=== PATIENT | female | born 1990 | race Caucasian/White ===

== ENCOUNTER 2018-04-14 21:06 | Emergency (ER) | payer MEDICAID ==
[~2018-04-14] VITALS: Ht 152.4 cm; Wt 89.3 kg
[2018-04-14 21:08] VITALS: Ht 152.4 cm; Wt 89.3 kg
[2018-04-14 22:59] LABS: PLATELET COUNT 216 x10^3mcL (130-400); RED CELL DISTRIBUTION WIDTH 13.7 % (11.5-14.5)
[2018-04-14 23:22] LABS: CALCIUM 8.7 mg/dL (8.5-10.1); CARBON DIOXIDE 27.3 mmol/L (21-32); CHLORIDE SERUM 106 mmol/L (98-107); CREATININE SERUM 0.7 mg/dL (0.6-1.0); GFR1 > 60 mL/min; GLUCOSE SERUM 100 mg/dL (74-106); POTASSIUM SERUM 3.9 mmol/L (3.5-5.1); SODIUM SERUM 140 mmol/L (136-145)
[2018-04-14 23:25] LABS: microscopic required? YES; urine erythrocyte TRACE (NEGATIVE)
[2018-04-14 23:29] LABS: ALBUMIN 3.7 g/dL (3.4-5.0); ALKALINE PHOSPHATASE 82 U/L (46-116); ALT/SGPT 26 U/L (14-59); AST/SGOT 18 U/L (15-37); BILIRUBIN TOTAL 0.3 mg/dL (0.20-1.00); LIPASE 228 IU/L (73-393)
[2018-04-15 01:31] VITALS: BP 146/97
== END 2018-04-15 01:31 | disposition home or self-care (01) ==
LOC: ED 21:06
PROVIDERS: Emergency Medicine
DX: B37.3 Candidiasis of vulva and vagina (principal); N39.0 Urinary tract infection, site not specified
CPT/HCPCS: 36415; 87491; 87591; J0696; Q0162

== ENCOUNTER 2018-08-05 06:36 | Emergency (ER) | payer MEDICAID ==
[~2018-08-05] VITALS: Ht 149.9 cm; Wt 86.7 kg
[2018-08-05 06:54] VITALS: Ht 149.9 cm; Wt 86.7 kg
[2018-08-05 08:54] VITALS: BP 130/81
== END 2018-08-05 08:54 | disposition home or self-care (01) ==
LOC: ED 06:36
DX: B34.9 Viral infection, unspecified (principal); J02.9 Acute pharyngitis, unspecified; K46.9 Unspecified abdominal hernia without obstruction or gangrene

== ENCOUNTER 2018-08-05 21:00 | Emergency (ER) | payer MEDICAID ==
[2018-08-06 00:03] VITALS: BP 122/86
== END 2018-08-06 00:03 | disposition home or self-care (01) ==
LOC: ED 21:00
DX: G44.209 Tension-type headache, unspecified, not intractable (principal); R11.0 Nausea; R50.9 Fever, unspecified
CPT/HCPCS: J0780; J1885

== ENCOUNTER 2019-10-30 12:02 | Emergency (ER) | payer SELFPAY ==
[~2019-10-30] VITALS: Ht 152.4 cm; Wt 88.9 kg
[2019-10-30 12:10] VITALS: Ht 152.4 cm; Wt 88.9 kg
[2019-10-30 14:14] VITALS: BP 130/99
== END 2019-10-30 14:14 | disposition home or self-care (01) ==
LOC: ED 12:02
DX: B34.9 Viral infection, unspecified (principal); G43.909 Migraine, unspecified, not intractable, without status migrainosus

== ENCOUNTER 2019-11-11 10:14 | Emergency (ER) | payer SELFPAY ==
[~2019-11-11] VITALS: Ht 152.4 cm; Wt 88.9 kg
[2019-11-11 10:22] VITALS: Ht 152.4 cm; Wt 88.9 kg
[2019-11-11 11:13] VITALS: BP 128/88
== END 2019-11-11 11:13 | disposition home or self-care (01) ==
LOC: ED 10:14
DX: J06.9 Acute upper respiratory infection, unspecified (principal); J45.909 Unspecified asthma, uncomplicated; G43.909 Migraine, unspecified, not intractable, without status migrainosus
CPT/HCPCS: J1885; Q0162

== ENCOUNTER 2019-12-29 19:43 | Emergency (ER) | payer OTHER ==
[~2019-12-29] VITALS: Ht 152.4 cm; Wt 89.4 kg
[2019-12-29 19:54] VITALS: BP 137/86; Ht 152.4 cm; Wt 89.4 kg
== END 2019-12-29 22:43 | disposition left against medical advice (07) ==
LOC: ED 19:43
DX: O26.891 Other specified pregnancy related conditions, first trimester (principal); R11.0 Nausea; N64.4 Mastodynia; Z3A.01 Less than 8 weeks gestation of pregnancy

== ENCOUNTER 2020-01-26 07:31 | Emergency (ER) | payer OTHER ==
[~2020-01-26] VITALS: Ht 165.1 cm; Wt 90.3 kg
[2020-01-26 07:52] VITALS: BP 137/92; Ht 165.1 cm; Wt 90.3 kg
== END 2020-01-26 08:31 | disposition home or self-care (01) ==
LOC: ED 07:31
DX: J06.9 Acute upper respiratory infection, unspecified (principal); J45.909 Unspecified asthma, uncomplicated